=== PATIENT | female | born 1980 | race Hispanic/Latino ===

== ENCOUNTER 2018-01-04 23:10 | Emergency (ER) | payer MEDICAID ==
[2018-01-04 23:10] VITALS: BMI 25.7
[2018-01-04 23:19] VITALS: BP 102/64; PULSE 115
--- NOTE | 2018-01-04 23:27 | ED PDOC ---
Arrival/HPI - General Chief Complaint: Shortness Of Breath Time Seen by Provider: 01/04/18 23:17 Historian: Patient - History of Present Illness Narrative History of Present Illness (Text): 01/04/18 23:24 Funmi Bond is a 37 year old female, whose past medical history includes asthma , who presents to the Emergency department complaining of shortness of breath tonight with associated wheezing tonight. Patient states symptoms are consistent with previous episodes of asthma. Patient states she was getting ready to go out with friends when her symptoms began. fever, chills, chest pain , nausea, vomiting, diarrhea, urinary symptoms, back pain, neck pain, headache, dizziness, or any other complaints. Symptom Onset: Gradual Symptom Course: Unchanged Activities at Onset: Light Context: Home Past Medical History - Provider Review Nursing Documentation Reviewed: Yes - Past History Past History: Non-Contributing - Infectious Disease Hx of Infectious Diseases: None - Tetanus Immunization Tetanus Immunization: Unknown - Cardiac Hx Cardiac Arrhythmia: No Hx Congestive Heart Failure: No Hx Hypertension: No Hx Mitral Valve Prolapse: No Hx Pacemaker: No - Pulmonary Hx Asthma: Yes Hx Bronchitis: No (pt denies) Hx Chronic Obstructive Pulmonary Disease (COPD): Yes (pt denies) - Neurological Hx Transient Ischemic Attacks (TIA): No - HEENT Hx HEENT Disorder: No Hx Macular Degeneration: No - Renal Hx Renal Disorder: No - Endocrine/Metabolic Hx Endocrine Disorders: No Hx Systemic Lupus Erythematosus: No - Hematological/Oncological Hx Blood Disorders: No Hx Unexplained Bleeding: No - Integumentary Hx Dermatological Disorder: No Hx Squamous Cell Carcinoma: No - Musculoskeletal/Rheumatological Hx Falls: No - Gastrointestinal Hx Gall Bladder Disease: Yes - Genitourinary/Gynecological Hx Genitourinary Disorders: No Hx Urinary Tract Infection: No - Psychiatric Hx Anxiety: Yes Hx Depression: No Hx Substance Use: No - Surgical History Other/Comment: back surgery - Anesthesia Hx Anesthesia: Yes Hx Anesthesia Reactions: No Hx Malignant Hyperthermia: No - Suicidal Assessment Feels Threatened In Home Enviroment: No Family/Social History - Physician Review Nursing Documentation Reviewed: Yes Family/Social History: Unknown Family HX Smoking Status: Never Smoked Hx Alcohol Use: No Hx Substance Use: No Hx Substance Use Treatment: No Allergies/Home Meds Allergies/Adverse Reactions: Allergies cefepime Allergy (Verified 01/04/18 23:11) ITCHING ceftriaxone sodium [From Rocephin] Allergy (Verified 01/04/18 23:11) ITCHING ketorolac tromethamine [From Toradol] Allergy (Verified 01/04/18 23:11) ITCHING magnesium Allergy (Verified 01/04/18 23:11) URTICARIA metoclopramide HCl [From Reglan] Allergy (Verified 01/04/18 23:11) RASH cyclobenzaprine HCl [From Flexeril] Adverse Reaction (Verified 01/04/18 23:11) SHORTNESS OF BREATH gabapentin Adverse Reaction (Verified 01/04/18 23:11) SHORTNESS OF BREATH Iodinated Contrast- Oral and IV Dye Adverse Reaction (Verified 01/04/18 23:11) SHORTNESS OF BREATH morphine Adverse Reaction (Verified 01/04/18 23:11) ITCHING vancomycin Adverse Reaction (Verified 01/04/18 23:11) SHORTNESS OF BREATH racemic epinephrin Adverse Reaction (Intermediate, Uncoded 01/04/18 23:11) URTICARIA Home Medications: Home Meds Medication Instructions Recorded Confirmed Albuterol HFA [Ventolin HFA 90 2 puff PO PRN PRN 03/31/15 01/04/18 mcg/actuation (8 g)] Mometasone/Formoterol [Dulera 100 2 puff INH BID 05/28/15 01/04/18 Mcg/5 Mcg Inhaler] Albuterol/Ipratropium [Duoneb 3 3 ml INH PRN PRN 10/18/15 01/04/18 mg/0.5 mg (3 ml) UD] Review of Systems - Physician Review All systems were reviewed & negative as marked: Yes - Review of Systems Constitutional: Normal. absent: Fevers Eyes: Normal ENT: Normal Respiratory: SOB, Wheezing Cardiovascular: Normal. absent: Chest Pain Gastrointestinal: Normal. absent: Abdominal Pain, Diarrhea, Nausea, Vomiting Genitourinary Female: Normal. absent: Dysuria, Frequency, Hematuria, Urine Output Changes Musculoskeletal: Normal. absent: Back Pain, Neck Pain Skin: Normal. absent: Rash Neurological: Normal. absent: Headache, Dizziness Endocrine: Normal Hemo/Lymphatic: Normal Psychiatric: Normal Physical Exam Vital Signs Reviewed: Yes Vital Signs Pulse Resp BP Pulse Ox 01/05/18 00:58 18 99 01/05/18 00:29 22 93 L 01/04/18 23:18 115 H 24 102/64 98 Temperature: Afebrile Blood Pressure: Normal Pulse: Regular Respiratory Rate: Normal Appearance: Positive for: Well-Appearing, Non-Toxic, Comfortable Pain Distress: None Mental Status: Positive for: Alert and Oriented X 3 - Systems Exam Head: Present: Atraumatic, Normocephalic Pupils: Present: PERRL Extroacular Muscles: Present: EOMI Conjunctiva: Present: Normal Mouth: Present: Moist Mucous Membranes Neck: Present: Normal Range of Motion Respiratory/Chest: Present: Wheezes. No: Respiratory Distress, Accessory Muscle Use Cardiovascular: Present: Regular Rate and Rhythm, Normal S1, S2. No: Murmurs Abdomen: Present: Normal Bowel Sounds. No: Tenderness, Distention, Peritoneal Signs Back: Present: Normal Inspection Upper Extremity: Present: Normal Inspection. No: Cyanosis, Edema Lower Extremity: Present: Normal Inspection. No: Edema Neurological: Present: GCS=15, CN II-XII Intact, Speech Normal Skin: Present: Warm, Dry, Normal Color. No: Rashes Psychiatric: Present: Alert, Oriented x 3, Normal Insight, Normal Concentration Medical Decision Making ED Course and Treatment: 01/04/18 23:24 Impression: 37 year old female complaining of shortness of breath and wheezing tonight. Plan: -- Duoneb -- Prednisone -- Reassess and disposition Prior Visits: Notes and results from previous visits were reviewed. On 09/23/2017, pt was seen in the Emergency department for shortness of breath. Pt was admitted to the hospital for further evaluation. Progress Notes: 01/05/18 00:50 On reevaluation the patient feels better and is in no acute distress. I have discussed the results and plan with the patient, who expresses understanding. Patient given the opportunity to ask question, all questions were answered and there is agreement with the plan to discharge the patient home. Patient is stable for discharge. Patient was instructed to follow up with physician/clinic in 1-2 days or return if symptoms persist/worsen or new concerning symptoms arise. - Medication Orders Current Medication Orders: Discontinued Medications Albuterol/Ipratropium (Duoneb 3 Mg/0.5 Mg (3 Ml) Ud) 3 ml IH Q15M [facility] Last Admin: 01/04/18 23:59 Dose: 3 ml Prednisone (Prednisone Tab) 60 mg PO ONCE STA Stop: 01/04/18 23:24 Last Admin: 02/24/18 00:00 Dose: 60 mg - Scribe Statement The provider has reviewed the documentation as recorded by the Wesley Remy All medical record entries made by the Sandyibsue were at my direction and personally dictated by me. I have reviewed the chart and agree that the record accurately reflects my personal performance of the history, physical exam, medical decision making, and the department course for this patient. I have also personally directed, reviewed, and agree with the discharge instructions and disposition. Disposition/Present on Arrival - Present on Arrival Any Indicators Present on Arrival: No History of DVT/PE: Yes History of Uncontrolled Diabetes: No Urinary Catheter: No History of Decub. Ulcer: No History Surgical Site Infection Following: None - Disposition Have Diagnosis and Disposition been Completed?: Yes Diagnosis: Asthma Disposition: HOME/ ROUTINE Disposition Time: 00:50 Condition: IMPROVED Discharge Instructions (ExitCare): Asthma in Adults Referrals: Martín Guerrero Jr., MD [Primary Care Provider] - Follow up with primary Forms: [employer] (Armenian)
[2018-01-04] MEDS: Albuterol-Ipratrop 3 mg / 0.5 (3 ml) UD IH SCH ×3 (23:30→23:59)
[2018-01-05 00:59] VITALS: RESP 18; O2SAT 99
== END 2018-01-05 00:59 | disposition home or self-care (01) ==
LOC: ED 23:10
DX: J45.909 Unspecified asthma, uncomplicated (principal)

== ENCOUNTER 2018-02-14 15:58 | Emergency (ER) | payer MEDICAID ==
[2018-02-14 16:08] VITALS: BMI 29.1
[2018-02-14] MEDS: Levalbuterol 1.25 MG/3 ML Inhal Soln UD IH STA ×2 (16:10→16:40)
[2018-02-14] MEDS ORDERED: Levalbuterol 1.25 MG/3 ML Inhal Soln UD IH STA ×5 (16:10→23:06)
[2018-02-14 17:04] LABS: BASO # 0.05 K/mm3 (0.0-2.0); BASO % 0.3 % (0.0-3.0); EOS # 0.1 (0.0-0.7); EOS % 0.4 % (1.5-5.0); GRAN % 96.5 % (50.0-68.0); HEMOGLOBIN 14.4 g/dL (12.0-16.0); LYMPH # 0.4 (1.2-3.4); LYMPH % 2.1 % (22.0-35.0); MEAN CELL VOLUME 92.6 fl (80.0-105.0); MEAN CORPUSCULAR HEMOGLOBIN 32.1 pg (25.0-35.0); MEAN CORPUSCULAR HGB CONC 34.7 g/dl (31.0-37.0); MEAN PLATELET VOLUME 9.8 fl (7.0-11.0); MONO # 0.1 (0.1-0.6); MONO % 0.7 % (1.0-6.0); PLATELET COUNT 297 10^3/uL (120.0-450.0); RBC 4.48 10^6/uL (3.5-6.1); RED CELL DISTRIBUTION WIDTH 12.6 % (11.5-14.5); WHITE BLOOD COUNT 19.1 10^3/ul (4.5-11.0)
[2018-02-14 17:07] LABS: INR 1.12 (0.93-1.08); PARTIAL THROMBOPLASTIN TIME 27.5 Seconds (25.1-36.5); PROTHROMBIN TIME 12.8 SECONDS (9.4-12.5)
[2018-02-14 17:19] LABS: ALB/GLOB RATIO 1.3 (1.1-1.8); ALBUMIN 4.1 g/dL (3.0-4.8); ALT/SGPT 60 U/L (7-56); AST/SGOT 45 U/L (14-36); BLOOD UREA NITROGEN 7 mg/dL (7-21); CALCIUM 10.2 mg/dL (8.4-10.5); GFR AFRICAN-AMERICAN > 60; GFR NON-AFRICAN AMERICAN > 60
[2018-02-14 17:30] LABS: TROPONIN I < 0.01 ng/mL
[2018-02-14 17:54] LABS: BAND 4 % (0-2); LYMPHOCYTE 2 % (22.0-35.0); MONOCYTE 1 % (1.0-6.0); NEUTROPHIL 93 % (50.0-70.0)
--- NOTE | 2018-02-14 18:46 | ED PDOC ---
Arrival/HPI - General Chief Complaint: Shortness Of Breath Time Seen by Provider: 02/14/18 16:03 Historian: Patient - History of Present Illness Narrative History of Present Illness (Text): 02/14/18 18:44 38yo female Asthmatic , COPD, bib EMS with complaint of chest tightness, wheezing, shortness of breath and chest pain since earlier today. states she used her inhaler 15times without relieve. She states she took Prednisone 60mg s/ p coming to the Emergency department. She notes history of intubations 11times and multiple admissions. Denies fever, chills, nausea, vomiting, diaphoresis, calf pain, LE edema, any other complaint. Past Medical History - Provider Review Nursing Documentation Reviewed: Yes - Past History Past History: Non-Contributing - Infectious Disease Hx of Infectious Diseases: None - Tetanus Immunization Tetanus Immunization: Unknown - Cardiac Hx Cardiac Disorders: No - Pulmonary Hx Asthma: Yes Hx Chronic Obstructive Pulmonary Disease (COPD): Yes Other/Comment: INTUBATION - Neurological Hx Neurological Disorder: No - HEENT Hx HEENT Disorder: No - Renal Hx Renal Disorder: No - Endocrine/Metabolic Hx Endocrine Disorders: No Hx Systemic Lupus Erythematosus: No - Hematological/Oncological Hx Blood Disorders: No Hx Unexplained Bleeding: No - Integumentary Hx Dermatological Disorder: No - Musculoskeletal/Rheumatological Hx Musculoskeletal Disorders: No - Gastrointestinal Hx Gastrointestinal Disorders: Yes Hx Gall Bladder Disease: Yes - Genitourinary/Gynecological Hx Genitourinary Disorders: No Hx Urinary Tract Infection: No - Psychiatric Hx Psychophysiologic Disorder: Yes Hx Anxiety: Yes Hx Substance Use: No - Surgical History Other/Comment: back surgery - Anesthesia Hx Anesthesia: Yes Hx Anesthesia Reactions: No Hx Malignant Hyperthermia: No - Suicidal Assessment Feels Threatened In Home Enviroment: No Family/Social History - Physician Review Nursing Documentation Reviewed: Yes Family/Social History: Unknown Family HX Smoking Status: Never Smoked Hx Alcohol Use: No Hx Substance Use: No Hx Substance Use Treatment: No Allergies/Home Meds Allergies/Adverse Reactions: Allergies cefepime Allergy (Verified 02/14/18 16:08) ITCHING ceftriaxone sodium [From Rocephin] Allergy (Verified 02/14/18 16:08) ITCHING ketorolac tromethamine [From Toradol] Allergy (Verified 02/14/18 16:08) ITCHING magnesium Allergy (Verified 02/14/18 16:08) URTICARIA metoclopramide HCl [From Reglan] Allergy (Verified 02/14/18 16:08) RASH cyclobenzaprine HCl [From Flexeril] Adverse Reaction (Verified 02/14/18 16:08) SHORTNESS OF BREATH gabapentin Adverse Reaction (Verified 02/14/18 16:08) SHORTNESS OF BREATH Iodinated Contrast- Oral and IV Dye Adverse Reaction (Verified 02/14/18 16:08) SHORTNESS OF BREATH morphine Adverse Reaction (Verified 02/14/18 16:08) ITCHING vancomycin Adverse Reaction (Verified 02/14/18 16:08) SHORTNESS OF BREATH racemic epinephrin Adverse Reaction (Intermediate, Uncoded 02/14/18 16:08) URTICARIA Home Medications: Home Meds Medication Instructions Recorded Confirmed Albuterol HFA [Ventolin HFA 90 2 puff PO PRN PRN 03/31/15 02/14/18 mcg/actuation (8 g)] Mometasone/Formoterol [Dulera 100 2 puff INH BID 05/28/15 02/14/18 Mcg/5 Mcg Inhaler] Albuterol/Ipratropium [Duoneb 3 3 ml INH PRN PRN 10/18/15 02/14/18 mg/0.5 mg (3 ml) UD] Review of Systems - Physician Review All systems were reviewed & negative as marked: Yes - Review of Systems Constitutional: Normal Eyes: Normal ENT: Normal Respiratory: SOB, Wheezing. absent: Cough, Sputum Cardiovascular: Normal Gastrointestinal: Normal Genitourinary Female: Normal Musculoskeletal: Normal Skin: Normal Neurological: Normal Endocrine: Normal Hemo/Lymphatic: Normal Psychiatric: Normal Physical Exam Vital Signs Reviewed: Yes Vital Signs Pulse Resp BP Pulse Ox 02/14/18 21:50 113 H 18 113/83 92 L 02/14/18 20:42 121 H 18 98 02/14/18 19:40 123 H 18 98 02/14/18 19:10 129 H 18 98 02/14/18 16:47 28 H 96 02/14/18 16:11 115 H 18 117/73 98 Temperature: Afebrile Blood Pressure: Normal Pulse: Tachycardic Respiratory Rate: Normal Appearance: Positive for: Well-Appearing, Non-Toxic, Comfortable Pain Distress: Moderate Mental Status: Positive for: Alert and Oriented X 3 - Systems Exam Head: Present: Atraumatic, Normocephalic Pupils: Present: PERRL Extroacular Muscles: Present: EOMI Conjunctiva: Present: Normal Mouth: Present: Moist Mucous Membranes Neck: Present: Normal Range of Motion Respiratory/Chest: Present: Good Air Exchange, Wheezes (Difuse expiratory wheeze ), Retracting. No: Respiratory Distress, Accessory Muscle Use, Decreased Breath Sounds, Rales, Rhonchi, Tachypneic Cardiovascular: Present: Regular Rate and Rhythm, Normal S1, S2. No: Murmurs Abdomen: No: Tenderness, Distention, Peritoneal Signs Back: Present: Normal Inspection Upper Extremity: Present: Normal Inspection. No: Cyanosis, Edema Lower Extremity: Present: Normal Inspection. No: Edema Neurological: Present: GCS=15, CN II-XII Intact, Speech Normal Skin: Present: Warm, Dry, Normal Color. No: Rashes Psychiatric: Present: Alert, Oriented x 3, Normal Insight, Normal Concentration Medical Decision Making ED Course and Treatment: 02/15/18 00:11 PT was in moderate respiratory distress in Emergency department. She was treated with Xopenex and Solu medrol in Emergency department. per the RN she refused the whole 125mg of solu medrol and only took half of the medication. On r evaluation the wheeze improved slightly with the retractions, but she continued to wheeze. She notes that she is allergic to epinephrine and mag sulfate. Another multiple xopenex was ordered and pt was offered admission for status asthmaticus. she request that she ambulates around to see how she feel. On the trial her PO went to 92% on RA and she complained of shortness of breath. Treatment was continued and on re evaluation again for admission pt again asked to walk around in Emergency department to see how she feels before making her decision. On the 3rd time, patient request another treatment before she can decide if she is willing to stay. Another treatment was ordered and per the RN pt pulled out her port stating that she was leaving. She was told that she will leave Leaving Against Medical Advice (AMA): The patient is choosing to leave against medical advice. I have personally explained to the patient that choosing to do so may result in permanent bodily harm or . I have discussed at great length that without further evaluation and monitoring there may be unforeseen circumstances and/or deterioration causing permanent bodily harm or as a result of their choice. The patient is alert, oriented, and shows the mental capacity to make clear decisions regarding the patients health care at this time. The patient continues to wish to leave against medical advice. In light of the patients decision to leave against medical advice, follow-up has been arranged and the patient is aware of the importance to following up as instructed. The patient has been advised that they should return to the emergency room immediately if they change their mind at any time, or if their condition begins to change or worsen in any way. But she refused to sign the form and walked out from the Emergency department after 6hrs in Emergency department , declining admission for status Asthamticus. 02/15/18 00:19 02/15/18 00:21 While she was in Emergency department she complained of anxiety and was given Ativan . she complained of sensation in her throat and the RN noted that she was vomiting s/p and was given Zofran and Pepcid. She was talking in full sentence. Had no stridor. No tongue swelling. No hives was noted. 02/15/18 00:24 Leukocytosis was noted which is comparable to her previous labs. this could be secondary to the steroid she takes at home. - Lab Interpretations Lab Results: 02/14/18 16:39 02/14/18 16:39 Lab Results 02/14/18 18:44: Urine Opiates Screen Negative, Urine Methadone Screen Negative, Ur Barbiturates Screen Negative, Ur Phencyclidine Scrn Negative, Ur Amphetamines Screen Negative, U Benzodiazepines Scrn Positive, U Oth Cocaine Metabols Negative, U Cannabinoids Screen Negative 02/14/18 16:39: Sodium 140, Potassium 4.0, Chloride 106, Carbon Dioxide 24, Anion Gap 14, BUN 7, Creatinine 0.8, Est GFR ( Amer) > 60, Est GFR (Non- Af Amer) > 60, Random Glucose 141 H, Calcium 10.2, Total Bilirubin 0.3, AST 45 H D, ALT 60 H, Alkaline Phosphatase 78, Lactate Dehydrogenase 622, Total Creatine Kinase 223, Troponin I < 0.01, Total Protein 7.4, Albumin 4.1, Globulin 3.3, Albumin/Globulin Ratio 1.3 02/14/18 16:39: PT 12.8 H, INR 1.12 H, APTT 27.5 02/14/18 16:39: WBC 19.1 H D, RBC 4.48, Hgb 14.4, Hct 41.5, MCV 92.6, MCH 32.1, MCHC 34.7, RDW 12.6, Plt Count 297, MPV 9.8, Gran % 96.5 H, Lymph % (Auto) 2.1 L , [place] % (Auto) 0.7 L, Eos % (Auto) 0.4 L, Baso % (Auto) 0.3, Gran # 18.40 H, Lymph # (Auto) 0.4 L, [place] # (Auto) 0.1, Eos # (Auto) 0.1, Baso # (Auto) 0.05, Neutrophils % (Manual) 93 H, Band Neutrophils % 4 H, Lymphocytes % (Manual) 2 L , Monocytes % (Manual) 1 - RAD Interpretation Radiology Orders: 02/14/18 17:37 CHEST PORTABLE [RAD] Stat - Medication Orders Current Medication Orders: Discontinued Medications Famotidine (Pepcid) 20 mg IVP STAT STA Stop: 02/14/18 19:58 Last Admin: 02/14/18 20:04 Dose: 20 mg IVP Administration Document 02/14/18 20:04 IT (Rec: 02/14/18 20:04 IT [id number]) Charges for Administration # of IVP Administrations 1 Levalbuterol HCl (Xopenex) 1.25 mg IH STAT STA Stop: 02/14/18 16:10 Last Admin: 02/14/18 16:10 Dose: 1.25 mg Levalbuterol HCl (Xopenex) 1.25 mg IH STAT STA Stop: 02/14/18 16:11 Last Admin: 02/14/18 16:42 Dose: 1.25 mg Levalbuterol HCl (Xopenex) 1.25 mg IH STAT STA Stop: 02/14/18 16:11 Last Admin: 02/14/18 16:22 Dose: 1.25 mg Levalbuterol HCl (Xopenex) 1.25 mg IH STAT STA Stop: 02/14/18 18:55 Last Admin: 02/14/18 19:16 Dose: 1.25 mg Levalbuterol HCl (Xopenex) 1.25 mg IH STAT STA Stop: 02/14/18 20:25 Last Admin: 02/14/18 20:39 Dose: 1.25 mg Levalbuterol HCl (Xopenex) 1.25 mg IH STAT STA Stop: 02/14/18 23:07 Last Admin: 02/14/18 23:12 Dose: Lorazepam (Ativan) 2 mg IVP ONCE ONE PRN Reason: Protocol Stop: 02/14/18 19:05 Last Admin: 02/14/18 19:15 Dose: 2 mg IVP Administration Document 02/14/18 19:15 MS (Rec: 02/14/18 19:15 MS [id number]) Charges for Administration # of IVP Administrations 1 Methylprednisolone (Solu-Medrol) 125 mg IVP STAT STA Stop: 02/14/18 16:10 Last Admin: 02/14/18 16:40 Dose: 125 mg IVP Administration Document 02/14/18 16:40 MS (Rec: 02/14/18 16:40 MS [id number]) Charges for Administration # of IVP Administrations 1 Ondansetron HCl (Zofran Inj) 4 mg IVP STAT STA Stop: 02/14/18 19:58 Last Admin: 02/14/18 20:04 Dose: 4 mg IVP Administration Document 02/14/18 20:04 IT (Rec: 02/14/18 20:04 IT [id number]) Charges for Administration # of IVP Administrations 1 Disposition/Present on Arrival - Present on Arrival Any Indicators Present on Arrival: No History of DVT/PE: Yes History of Uncontrolled Diabetes: No Urinary Catheter: No History of Decub. Ulcer: No History Surgical Site Infection Following: None - Disposition Have Diagnosis and Disposition been Completed?: Yes Diagnosis: Status asthmaticus, Leukocytosis Disposition: AGAINST MEDICAL ADVICE Disposition Time: 23:15 Condition: FAIR Referrals: Martín Guerrero Jr., MD [Primary Care Provider] - Follow up with primary Forms: [employer] (Ukrainian)
[2018-02-14 19:10] LABS: OPIATES, UR NEGATIVE (NEGATIVE); PHENCYCLIDINE, UR NEGATIVE (NEGATIVE)
[2018-02-14 19:24] LABS: BARBITURATES, UR NEGATIVE (NEGATIVE); BENZODIAZEPINES, UR POSITIVE (NEGATIVE)
[2018-02-14 20:42] VITALS: RESP 18
[2018-02-14 21:51] VITALS: BP 113/83; PULSE 113; O2SAT 92
--- NOTE | 2018-02-15 09:31 | RAD ---
HISTORY: SOB COMPARISON: 09/23/2017 FINDINGS: LUNGS: No active pulmonary disease. PLEURA: No significant pleural effusion identified, no pneumothorax apparent. CARDIOVASCULAR: Normal. OSSEOUS STRUCTURES: No significant abnormalities. VISUALIZED UPPER ABDOMEN: Normal. OTHER FINDINGS: Left-sided Port-A-Cath IMPRESSION: No active disease.
== END 2018-02-14 23:24 | disposition left against medical advice (07) ==
LOC: ED 15:58
DX: J45.902 Unspecified asthma with status asthmaticus (principal); D72.829 Elevated white blood cell count, unspecified
CPT/HCPCS: 71045; 80053; 80324; 80345; 80346; 80349; 80353; 80358; 80361; 82550; 83615; 83992; 84484; 85025; 85610; 85730; 87040; 94640; 96374; 96375; 99285; J2060; J2405; J2930

== ENCOUNTER 2018-06-05 17:01 | Emergency (ER) | payer MEDICAID ==
[2018-06-05 17:01] VITALS: BMI 29.1
[2018-06-05] MEDS ORDERED: Sodium Chloride 0.9% 1,000 ML IV STA (17:24)
[2018-06-05 17:28] VITALS: TEMP 98.8
[2018-06-05] MEDS ORDERED: Albuterol-Ipratrop 3 mg / 0.5 (3 ml) UD IH STA (17:43)
--- NOTE | 2018-06-05 17:44 | ED PDOC ---
Arrival/HPI - General Chief Complaint: Female Genitourinary Time Seen by Provider: 06/05/18 17:02 Historian: Patient - History of Present Illness Narrative History of Present Illness (Text): 06/05/18 18:47 38yo female with pmhx of asthma who present with complaint of SOB, wheezing, abdominal pain and vaginal bleeding. Patient states she had Dilatation and curettage procedure s/p demise 3weeks ago. States procedure was done at [place] and left without waiting for instructions to know how long she suppose to bleed. states she had heavier bleeding s/p with clots but it has improved. States she is not taking any medication for the pain. Also reports chronic history of SOB and wheezing, but is worse today. Reports using her inhaler today. Denies fever, chills, urinary symptoms, nausea, vomiting, diarrhea, constipation, chest pain, SOB, diaphoresis, dizziness, any other complaint. Past Medical History - Provider Review Nursing Documentation Reviewed: Yes - Past History Past History: Non-Contributing - Infectious Disease Hx of Infectious Diseases: None - Tetanus Immunization Tetanus Immunization: Unknown - Cardiac Hx Cardiac Disorders: No - Pulmonary Hx Respiratory Disorders: Yes Hx Asthma: Yes Hx Chronic Obstructive Pulmonary Disease (COPD): Yes Other/Comment: INTUBATION - Neurological Hx Neurological Disorder: No - HEENT Hx HEENT Disorder: No - Renal Hx Renal Disorder: No - Endocrine/Metabolic Hx Endocrine Disorders: No Hx Systemic Lupus Erythematosus: No - Hematological/Oncological Hx Blood Disorders: No Hx Unexplained Bleeding: No - Integumentary Hx Dermatological Disorder: No - Musculoskeletal/Rheumatological Hx Musculoskeletal Disorders: No - Gastrointestinal Hx Gastrointestinal Disorders: Yes Hx Gall Bladder Disease: Yes - Genitourinary/Gynecological Hx Genitourinary Disorders: Yes Other/Comment: VAGINAL BLEEDING - Psychiatric Hx Psychophysiologic Disorder: Yes Hx Anxiety: Yes Hx Substance Use: No - Surgical History Other/Comment: D&C - Anesthesia Hx Anesthesia: Yes Hx Anesthesia Reactions: No Hx Malignant Hyperthermia: No - Suicidal Assessment Feels Threatened In Home Enviroment: No Family/Social History - Physician Review Nursing Documentation Reviewed: Yes Family/Social History: Unknown Family HX Smoking Status: Never Smoked Hx Alcohol Use: No Hx Substance Use: No Hx Substance Use Treatment: No Allergies/Home Meds Allergies/Adverse Reactions: Allergies cefepime Allergy (Verified 06/05/18 17:03) ITCHING ceftriaxone sodium [From Rocephin] Allergy (Verified 06/05/18 17:03) ITCHING ketorolac tromethamine [From Toradol] Allergy (Verified 06/05/18 17:03) ITCHING magnesium Allergy (Verified 06/05/18 17:03) URTICARIA metoclopramide HCl [From Reglan] Allergy (Verified 06/05/18 17:03) RASH cyclobenzaprine HCl [From Flexeril] Adverse Reaction (Verified 06/05/18 17:03) SHORTNESS OF BREATH gabapentin Adverse Reaction (Verified 06/05/18 17:03) SHORTNESS OF BREATH Iodinated Contrast- Oral and IV Dye Adverse Reaction (Verified 06/05/18 17:03) SHORTNESS OF BREATH vancomycin Adverse Reaction (Verified 06/05/18 17:03) SHORTNESS OF BREATH racemic epinephrin Adverse Reaction (Intermediate, Uncoded 06/05/18 17:03) URTICARIA Home Medications: Home Meds Medication Instructions Recorded Confirmed Albuterol HFA [Ventolin HFA 90 2 puff PO PRN PRN 03/31/15 06/05/18 mcg/actuation (8 g)] Mometasone/Formoterol [Dulera 100 2 puff INH BID 05/28/15 06/05/18 Mcg/5 Mcg Inhaler] Albuterol/Ipratropium [Duoneb 3 3 ml INH PRN PRN 10/18/15 06/05/18 mg/0.5 mg (3 ml) UD] Review of Systems - Physician Review All systems were reviewed & negative as marked: Yes - Review of Systems Constitutional: Normal Eyes: Normal ENT: Normal Respiratory: SOB, Wheezing. absent: Cough, Sputum Cardiovascular: Normal Gastrointestinal: Abdominal Pain. absent: Constipation, Diarrhea, Nausea, Vomiting, Hematochezia, Hematemesis Genitourinary Female: Vaginal Bleeding. absent: Dysuria, Frequency, Hematuria, Vaginal Discharge Musculoskeletal: Normal Skin: Normal Neurological: Normal Endocrine: Normal Hemo/Lymphatic: Normal Psychiatric: Normal Physical Exam Vital Signs Reviewed: Yes Vital Signs Temp Pulse Resp BP Pulse Ox 06/05/18 20:34 82 18 117/72 100 06/05/18 18:53 80 17 114/68 97 06/05/18 17:04 98.8 F 89 17 105/74 93 L Temperature: Afebrile Blood Pressure: Normal Pulse: Regular Respiratory Rate: Normal Appearance: Positive for: Well-Appearing, Non-Toxic, Comfortable Pain Distress: None Mental Status: Positive for: Alert and Oriented X 3 - Systems Exam Head: Present: Atraumatic, Normocephalic Pupils: Present: PERRL Extroacular Muscles: Present: EOMI Conjunctiva: Present: Normal Mouth: Present: Moist Mucous Membranes Neck: Present: Normal Range of Motion Respiratory/Chest: Present: Good Air Exchange, Wheezes (Diffuse mild expiratory wheeze). No: Respiratory Distress, Accessory Muscle Use, Decreased Breath Sounds, Rales, Retracting, Rhonchi, Tachypneic Cardiovascular: Present: Regular Rate and Rhythm, Normal S1, S2. No: Murmurs Abdomen: Present: Tenderness (Pelvic tenderness), Normal Bowel Sounds, Guarding (Voluntary), Other (Soft). No: Distention, Peritoneal Signs, Rebound, McBurney' s Point Tender, Rovsing's Sign Present Back: Present: Normal Inspection Upper Extremity: Present: Normal Inspection. No: Cyanosis, Edema Lower Extremity: Present: Normal Inspection. No: Edema Neurological: Present: GCS=15, CN II-XII Intact, Speech Normal Skin: Present: Warm, Dry, Normal Color. No: Rashes Psychiatric: Present: Alert, Oriented x 3, Normal Insight, Normal Concentration Medical Decision Making ED Course and Treatment: 06/06/18 01:06 PT presented for stated history. She exhibited drug seeking behaivor in ED asking for narcotics. she requested to go to US until morphine was given. Lab was reviewed and h/h was wnl. Beta was <3. On re evaluation her lung was CA b/l and she was not in any distress. Speaking in full sentence and ambulatory without any distress. Transvaginal US FINDINGS: Uterus/cervix: Nabothian cysts noted in the cervix Endometrium thickness measures 3.3 mm. No evidence of retained products. No myometrial mass. Right ovary: Both ovaries are normal in size and demonstrate vascular flow. Normal blood flow. Left ovary: Tubular fluid filled structure in the left adnexa, seen only on the transabdominal view, suspect bowel segment. Free fluid: No free fluid. IMPRESSION: No evidence of intrauterine retained products Result was DW the pt and she was referred to a HOSPITAL PHARMACY TECHNICIAN - Lab Interpretations Lab Results: 06/05/18 17:50 06/05/18 17:50 Lab Results 06/05/18 17:50: Beta HCG, Quant < 2.39 06/05/18 17:50: Sodium 141, Potassium 4.0, Chloride 105, Carbon Dioxide 25, Anion Gap 15, BUN 13, Creatinine 0.8, Est GFR ( Amer) > 60, Est GFR (Non- Af Amer) > 60, Random Glucose 87, Calcium 8.9, Magnesium 2.1, Total Bilirubin 0.2, AST 23, ALT 31, Alkaline Phosphatase 61, Total Protein 6.8, Albumin 3.9, Globulin 2.9, Albumin/Globulin Ratio 1.3, Lipase 47 06/05/18 17:50: PT 11.7, INR 1.03, APTT 20.8 L 06/05/18 17:50: WBC 8.0 D, RBC 4.53, Hgb 14.1, Hct 41.5, MCV 91.6, MCH 31.1, MCHC 34.0, RDW 12.6, Plt Count 272, MPV 10.0, Gran % 58.2, Lymph % (Auto) 24.9, [place] % (Auto) 7.6 H, Eos % (Auto) 8.3 H, Baso % (Auto) 1.0, Gran # 4.65, Lymph # (Auto) 2.0, [place] # (Auto) 0.6, Eos # (Auto) 0.7, Baso # (Auto) 0.08 - RAD Interpretation Radiology Orders: 06/05/18 17:27 TRANSVAGINAL [US] Stat - Medication Orders Current Medication Orders: Discontinued Medications Albuterol/Ipratropium (Duoneb 3 Mg/0.5 Mg (3 Ml) Ud) 3 ml IH Q15M STA Stop: 06/05/18 17:44 Last Admin: 06/05/18 18:18 Dose: 3 ml Famotidine (Pepcid) 20 mg IVP STAT STA Stop: 06/05/18 17:25 Last Admin: 06/05/18 18:18 Dose: 20 mg IVP Administration Document 06/05/18 18:18 SF (Rec: 06/05/18 18:18 [id number]) Charges for Administration # of IVP Administrations 1 Sodium Chloride (Sodium Chloride 0.9%) 1,000 mls @ 1,000 mls/hr IV .Q1H STA Stop: 06/05/18 18:23 Last Admin: 06/05/18 18:15 Dose: 1,000 mls/hr eMAR Start Stop Document 06/05/18 18:15 SF (Rec: 06/05/18 18:33 SF [id number]) Intravenous Solution Start Date 06/05/18 Start Time 18:15 End Date 06/05/18 End time 19:15 Total Infusion Time 60 Methylprednisolone (Solu-Medrol) 125 mg IVP STAT STA Stop: 06/05/18 17:45 Last Admin: 06/05/18 18:18 Dose: 125 mg IVP Administration Document 06/05/18 18:18 SF (Rec: 06/05/18 18:18 SF [id number]) Charges for Administration # of IVP Administrations 1 Morphine Sulfate (Morphine) 4 mg IVP STAT STA Stop: 06/05/18 18:36 Last Admin: 06/05/18 18:57 Dose: 4 mg MAR Pain Assessment Document 06/05/18 18:57 SF (Rec: 06/05/18 18:57 SF [id number]) Pain Reassessment Is this a pain reassessment? Yes Sleep Is patient sleeping during reassessment? No Presence of Pain Presence of Pain Yes IVP Administration Document 06/05/18 18:57 SF (Rec: 06/05/18 18:57 SF [id number]) Charges for Administration # of IVP Administrations 1 Disposition/Present on Arrival - Present on Arrival Any Indicators Present on Arrival: No History of DVT/PE: Yes History of Uncontrolled Diabetes: No Urinary Catheter: No History of Decub. Ulcer: No History Surgical Site Infection Following: None - Disposition Have Diagnosis and Disposition been Completed?: Yes Diagnosis: Pelvic pain in female, Drug-seeking behavior, Acute asthma exacerbation Disposition: HOME/ ROUTINE Disposition Time: 20:25 Patient Plan: Discharge Condition: STABLE Discharge Instructions (ExitCare): Asthma in Adults, Acute Pelvic Pain (DC) Additional Instructions: Follow up with your PMD/HOSPITAL PHARMACY TECHNICIAN Return to ED for any new or worsening symptoms Referrals: Molly Salas MD [Staff Provider] - Follow up with primary Forms: Jildy (Romansh)
[2018-06-05] MEDS ORDERED: Oxycodone/Acetaminophen 5/325 mg Tab PO STA (18:30)
[2018-06-05] MEDS ORDERED: Morphine 4 mg/ml ISec IVP STA (18:35)
[2018-06-05 18:37] LABS: ALB/GLOB RATIO 1.3 (1.1-1.8); ALBUMIN 3.9 g/dL (3.0-4.8); ALT/SGPT 31 U/L (7-56); AST/SGOT 23 U/L (14-36); BLOOD UREA NITROGEN 13 mg/dL (7-21); CALCIUM 8.9 mg/dL (8.4-10.5); GFR AFRICAN-AMERICAN > 60; GFR NON-AFRICAN AMERICAN > 60; LIPASE 47 U/L (23-300)
[2018-06-05 18:41] LABS: INR 1.03 (0.93-1.08); PARTIAL THROMBOPLASTIN TIME 20.8 Seconds (25.1-36.5); PROTHROMBIN TIME 11.7 SECONDS (9.4-12.5)
[2018-06-05 18:46] LABS: BASO # 0.08 K/mm3 (0.0-2.0); EOS # 0.7 (0.0-0.7); EOS % 8.3 % (1.5-5.0); GRAN # 4.65 (1.4-6.5); GRAN % 58.2 % (50.0-68.0); HEMOGLOBIN 14.1 g/dL (12.0-16.0); LYMPH % 24.9 % (22.0-35.0); MEAN CELL VOLUME 91.6 fl (80.0-105.0); MEAN CORPUSCULAR HEMOGLOBIN 31.1 pg (25.0-35.0); MONO # 0.6 (0.1-0.6); MONO % 7.6 % (1.0-6.0); RBC 4.53 10^6/uL (3.5-6.1); RED CELL DISTRIBUTION WIDTH 12.6 % (11.5-14.5)
[2018-06-05 20:36] VITALS: BP 117/72; PULSE 82; RESP 18; O2SAT 100
--- NOTE | 2018-06-06 12:56 | US ---
Date of service: 06/05/2018 HISTORY: abdominal pain/bleeding s/p D C COMPARISON: None available. TECHNIQUE: Transabdominal and transvaginal FINDINGS: UTERUS: Measures 9.0 x 4.7 x 4.9 cm. Normal in size and appearance. No fibroid or other mass lesion seen. ENDOMETRIUM: Measures 3 mm in diameter. Unremarkable. CERVIX: No cervical abnormality identified. RIGHT OVARY: Measures 3.4 x 2.3 x 2.0 cm. No solid mass. Normal flow. LEFT OVARY: Measures 3.7 x 1.4 x 1.8 cm. No solid mass. Normal flow. There is an ovoid complex fluid collection in the left adnexal region with low-level internal echoes and a mildly lobulated wall. The appearance and most likely represents a segment of bowel. . FREE FLUID: No significant free fluid noted. OTHER FINDINGS: None. IMPRESSION: No evidence retained products conception. Tubular fluid collection in left adnexal region most likely a segment of bowel wall. Otherwise unremarkable. The preliminary findings for this examination were reported by [facility] at 8:04 p.m. on 06/05/2018. There is concurrence of this report with the preliminary findings.
== END 2018-06-05 20:34 | disposition home or self-care (01) ==
LOC: ED 17:01
DX: R10.2 Pelvic and perineal pain (principal); Z76.5 Malingerer [conscious simulation]; J45.901 Unspecified asthma with (acute) exacerbation
CPT/HCPCS: 76830; 80053; 83690; 83735; 84702; 85025; 85610; 85730; 96361; 96374; 96375; 99284; J2270; J2930; J7030

== ENCOUNTER 2018-08-20 07:59 | Emergency (ER) | payer MEDICAID, MEDICARE, OTHER ==
[2018-08-20 07:59] VITALS: BMI 26.4
== END 2018-08-20 08:10 | disposition left against medical advice (07) ==
LOC: ED 07:59
DX: Z02.89 Encounter for other administrative examinations (principal); R06.00 Dyspnea, unspecified

== ENCOUNTER 2019-01-24 18:55 | Emergency (ER) | payer MEDICAID, MEDICARE, OTHER ==
[2019-01-24 18:58] VITALS: BMI 24.0
[2019-01-24] MEDS ORDERED: Sodium Chloride 0.9% 1,000 ML IV STA (19:33)
[2019-01-24 20:01] LABS: BASO # 0.03 K/mm3 (0.0-2.0); BASO % 0.3 % (0.0-3.0); EOS % 0.2 % (1.5-5.0); HEMOGLOBIN 13.9 g/dL (12.0-16.0); LYMPH # 1.4 (1.2-3.4); LYMPH % 13.8 % (22.0-35.0); MEAN CELL VOLUME 93.1 fl (80.0-105.0); MEAN CORPUSCULAR HEMOGLOBIN 32.1 pg (25.0-35.0); MEAN CORPUSCULAR HGB CONC 34.5 g/dl (31.0-37.0); MEAN PLATELET VOLUME 10.2 fl (7.0-11.0); MONO # 0.8 (0.1-0.6); MONO % 7.3 % (1.0-6.0); RBC 4.33 10^6/uL (3.5-6.1); RED CELL DISTRIBUTION WIDTH 12.3 % (11.5-14.5); WHITE BLOOD COUNT 10.3 10^3/uL (4.5-11.0)
[2019-01-24 20:15] LABS: BLOOD UREA NITROGEN 12 mg/dL (7-21); GFR NON-AFRICAN AMERICAN > 60
[2019-01-24 20:26] LABS: TROPONIN I < 0.01 ng/mL
[2019-01-24 20:53] LABS: CK-MB 4.4 ng/mL (0.0-3.6)
[2019-01-24 20:54] VITALS: TEMP 98.2
--- NOTE | 2019-01-24 22:16 | ED PDOC ---
Arrival/HPI - General Chief Complaint: Chest Pain Time Seen by Provider: 01/24/19 19:17 Historian: Patient - History of Present Illness Narrative History of Present Illness (Text): 01/24/19 22:16 39 year old female, with past medical history of anxiety, asthma, COPD, gall bladder disease, and pulmonary embolism, presents to emergency department complaining of chest pain, shortness of breath, nausea, vomiting, diarrhea, and generalized weakness for the past two days. Patient reports symptoms improved after taking oxycodone, which she uses for chronic back pain from a pervious surgery. Patient notes that when she stopped taking the medication, her symptoms started again. Patient also notes that her shortness of breath feels different currently and she has not been experiencing wheezing which she usually does. Patient also reports feeling anxious currently but does not take medication for anxiety. Patient denies any fevers, chills, headache, dizziness, cough, abdominal pain, neck pain, or any other complaints. Time/Duration: Other (2 days) Symptom Onset: Gradual Symptom Course: Unchanged Activities at Onset: Light Context: Home Past Medical History - Provider Review Nursing Documentation Reviewed: Yes - Past History Past History: Non-Contributing - Infectious Disease Hx of Infectious Diseases: None - Tetanus Immunization Tetanus Immunization: Unknown - Cardiac Hx Atrial Fibrillation: No Hx Cardiac Arrhythmia: No Hx Congestive Heart Failure: No Hx Hypertension: No Hx Mitral Valve Prolapse: No Hx Pacemaker: No - Pulmonary Hx Asthma: Yes Hx Bronchitis: (pt denies) Hx Chronic Obstructive Pulmonary Disease (COPD): Yes Hx Pulmonary Embolism: Yes - Neurological Hx Transient Ischemic Attacks (TIA): No - HEENT Hx HEENT Disorder: No - Renal Hx Renal Disorder: No - Endocrine/Metabolic Hx Endocrine Disorders: No Hx Systemic Lupus Erythematosus: No - Hematological/Oncological Hx Blood Disorders: Yes Hx Cancer: Yes (Left breast CA) - Integumentary Hx Dermatological Disorder: No - Musculoskeletal/Rheumatological Hx Fractures: Yes - Gastrointestinal Hx Gall Bladder Disease: Yes - Genitourinary/Gynecological Hx Genitourinary Disorders: Yes Other/Comment: DYSFUNCTIONAL UTERINE BLEEDING, - Psychiatric Hx Anxiety: Yes Hx Depression: No Hx Substance Use: No - Surgical History Other/Comment: L chest port - Anesthesia Hx Anesthesia: Yes Hx Anesthesia Reactions: No Hx Malignant Hyperthermia: No - Suicidal Assessment Feels Threatened In Home Enviroment: No Family/Social History - Physician Review Nursing Documentation Reviewed: Yes Family/Social History: Unknown Family HX Smoking Status: Former Smoker Hx Alcohol Use: No Hx Substance Use: No Hx Substance Use Treatment: No Allergies/Home Meds Allergies/Adverse Reactions: Allergies cefepime Allergy (Verified 12/17/18 03:16) ITCHING ceftriaxone sodium [From Rocephin] Allergy (Verified 12/17/18 03:16) ITCHING ketorolac tromethamine [From Toradol] Allergy (Verified 12/17/18 03:16) ITCHING magnesium Allergy (Verified 12/17/18 03:16) URTICARIA metoclopramide HCl [From Reglan] Allergy (Verified 12/17/18 03:16) RASH cyclobenzaprine HCl [From Flexeril] Adverse Reaction (Verified 12/17/18 03:16) SHORTNESS OF BREATH gabapentin Adverse Reaction (Verified 12/17/18 03:16) SHORTNESS OF BREATH Iodinated Contrast- Oral and IV Dye Adverse Reaction (Verified 12/17/18 03:16) SHORTNESS OF BREATH vancomycin Adverse Reaction (Verified 12/17/18 03:16) SHORTNESS OF BREATH racemic epinephrin Adverse Reaction (Intermediate, Uncoded 12/17/18 03:16) URTICARIA Home Medications: Home Meds Medication Instructions Recorded Confirmed Albuterol/Ipratropium [Duoneb 3 3 ml INH PRN PRN 10/18/15 12/17/18 mg/0.5 mg (3 ml) UD] Budesonide/Formoterol Fumarate 1 aer IH BID 12/17/18 12/17/18 [Symbicort] Review of Systems - Physician Review All systems were reviewed & negative as marked: Yes - Review of Systems Constitutional: absent: Fevers Respiratory: SOB. absent: Cough, Wheezing Cardiovascular: Chest Pain Gastrointestinal: Diarrhea, Nausea, Vomiting. absent: Abdominal Pain Genitourinary Female: absent: Frequency, Hematuria, Urine Output Changes Musculoskeletal: Back Pain (chronic ), Myalgias (generalized ) Skin: absent: Rash Neurological: absent: Headache, Dizziness Psychiatric: Anxiety Physical Exam Vital Signs Reviewed: Yes Vital Signs Temp Pulse Resp BP Pulse Ox 01/24/19 20:54 98.2 F 75 18 135/74 97 Temperature: Afebrile Blood Pressure: Normal Pulse: Regular Respiratory Rate: Normal Appearance: Positive for: Well-Appearing, Non-Toxic, Comfortable Pain Distress: None Mental Status: Positive for: Alert and Oriented X 3 - Systems Exam Head: Present: Atraumatic, Normocephalic Pupils: Present: PERRL Extroacular Muscles: Present: EOMI Conjunctiva: Present: Normal Mouth: Present: Moist Mucous Membranes Neck: Present: Normal Range of Motion Respiratory/Chest: Present: Clear to Auscultation, Good Air Exchange, Other (hyperventilating, port to left chest ). No: Respiratory Distress, Accessory Muscle Use, Wheezes Cardiovascular: Present: Regular Rate and Rhythm, Normal S1, S2. No: Murmurs Abdomen: Present: Other (soft ). No: Tenderness, Distention, Peritoneal Signs Back: Present: Normal Inspection Upper Extremity: Present: Normal Inspection. No: Cyanosis, Edema Lower Extremity: Present: Normal Inspection. No: Edema Neurological: Present: GCS=15, CN II-XII Intact, Speech Normal Skin: Present: Warm, Dry, Normal Color. No: Rashes Psychiatric: Present: Alert, Oriented x 3, Normal Insight, Normal Concentration, Anxious Medical Decision Making ED Course and Treatment: 01/24/19 22:26 Impression: 39 year old female presents to emergency department complaining of chest pain, shortness of breath, nausea, vomiting, diarrhea, and generalized weakness for the past two days. Plan: -- EKG -- Labs -- Chest X-ray -- Ativan -- Potassium chloride -- Reassess and disposition Prior Visits: Notes and results from previous visits were reviewed. Progress Notes: L chest port accessed by RN. IV hydration initiated. 1mg ativan ivp given for anxiety and hyperventilating. 01/25/19 00:22 EKG: Ordered, reviewed, and independently interpreted the EKG. Rate : 82 BPM Rhythm : NSR Interpretation : Normal axis, normal intervals, no ST elevation CXR: no acute disease as read by me. All results reviewed and discussed with patient. Hypokalemia noted, 40meq KCl IVPB ordered and given. On re-eval she appears much more calm, no longer hyperventilating. Vital signs have been within normal limits throughout ED course. Stable for discharge home at this time. Advised outpatient followup with PMD. Return to the ED for any new or worsening symptoms. Lung exam still unremarkable at discharge. No vomiting or diarrhea throughout ED course. - Lab Interpretations Lab Results: Troponin I < 0.01 ng/mL 01/24/19 19:53 - RAD Interpretation Radiology Orders: 01/24/19 19:32 CHEST PORTABLE [RAD] Stat - Medication Orders Current Medication Orders: Potassium Chloride (Potassium Chloride 20 Meq/100 Ml) 20 meq in 100 mls @ 50 mls/hr IVPB Q2H SHON Stop: 01/25/19 00:29 Last Admin: 01/24/19 21:13 Dose: 50 mls/hr eMAR Start Stop Document 01/24/19 21:13 EB (Rec: 01/24/19 21:13 [id number] Intravenous Solution Start Date 01/24/19 Start Time 21:13 Discontinued Medications Sodium Chloride (Sodium Chloride 0.9%) 1,000 mls @ 999 mls/hr IV .Q1H1M STA Stop: 01/24/19 20:33 Last Admin: 01/24/19 19:48 Dose: 999 mls/hr eMAR Start Stop Document 01/24/19 19:48 EB (Rec: 01/24/19 19:48 [id number] Intravenous Solution Start Date 01/24/19 Start Time 19:48 Lorazepam (Ativan) 1 mg IVP ONCE ONE; Protocol Stop: 01/24/19 19:33 Last Admin: 01/24/19 19:48 Dose: 1 mg IVP Administration Document 01/24/19 19:48 EB (Rec: 01/24/19 19:48 [id number] Charges for Administration # of IVP Administrations 1 - Scribe Statement The provider has reviewed the documentation as recorded by the Scribe Rosibel Flores All medical record entries made by the Scribe were at my direction and personally dictated by me. I have reviewed the chart and agree that the record accurately reflects my personal performance of the history, physical exam, medical decision making, and the department course for this patient. I have also personally directed, reviewed, and agree with the discharge instructions and disposition. Disposition/Present on Arrival - Present on Arrival Any Indicators Present on Arrival: No History of DVT/PE: No History of Uncontrolled Diabetes: No Urinary Catheter: No History of Decub. Ulcer: No History Surgical Site Infection Following: None - Disposition Have Diagnosis and Disposition been Completed?: Yes Diagnosis: Dyspnea, Anxiety, Hypokalemia, Nausea vomiting and diarrhea Disposition: HOME/ ROUTINE Disposition Time: 23:30 Patient Plan: Discharge Condition: STABLE Discharge Instructions (ExitCare): Nausea and Vomiting, Adult (DC), Shortness of Breath (Dyspnea) Additional Instructions: GUANAKO CARLSON, thank you for letting us take care of you today. Your provider was Karen Orlando MD and you were treated for CHEST PAIN, VOMITING, OVERALL WEAKNESS. The emergency medical care you received today was directed at your acute symptoms. If you were prescribed any medication, please fill it and take as directed. It may take several days for your symptoms to resolve. Return to the Emergency Department if your symptoms worsen, do not improve, or if you have any other problems. Please contact your doctor or call one of the physicians/clinics you have been referred to that are listed on the Patient Visit Information form that is included in your discharge packet. Bring any paperwork you were given at discharge with you along with any medications you are taking to your follow up visit. Our treatment cannot replace ongoing medical care by a primary care prov ider outside of the emergency department. Thank you for allowing the [facility] team to be part of your care today. If you had an X-Ray or CT scan: A Radiologist will review the ED reading if any change in treatment is needed we will contact you. If you had a blood, urine, or wound culture: It will take several days for the results, if any change in treatment is needed we will contact you. If you had an STI test: It will take 48 hours for the results. Please call after 1 week if you have not heard back. Referrals: Martín Guerrero Jr., MD [Primary Care Provider] - Follow up with primary Forms: Silecs (Chilean)
[2019-01-24 22:36] VITALS: BP 103/67; PULSE 71; RESP 17; O2SAT 99
--- NOTE | 2019-01-25 09:02 | CARD ---
APPROVED REPORT Date of service: 01/24/2019 EKG Measurement Heart [id number] <Conclusion> Normal sinus rhythm Possible Left atrial enlargement Borderline ECG
--- NOTE | 2019-01-25 11:56 | RAD ---
Date of service: 01/24/2019 HISTORY: Dyspnea. COMPARISON: Five hundred eighteen. FINDINGS: LUNGS: No active pulmonary disease. PLEURA: No significant pleural effusion identified, no pneumothorax apparent. CARDIOVASCULAR: No atherosclerotic calcification present No radiographic findings to suggest acute or significant cardiovascular disease. Venous access catheter in stable, satisfactory position. OSSEOUS STRUCTURES: No significant abnormalities. VISUALIZED UPPER ABDOMEN: Normal. OTHER FINDINGS: None. IMPRESSION: No active disease. No significant interval change compared to the prior examination(s).
== END 2019-01-24 23:30 | disposition home or self-care (01) ==
LOC: ED 18:55
DX: E87.6 Hypokalemia (principal); R06.00 Dyspnea, unspecified; F41.9 Anxiety disorder, unspecified; R11.2 Nausea with vomiting, unspecified; R19.7 Diarrhea, unspecified; J44.9 Chronic obstructive pulmonary disease, unspecified; Z87.891 Personal history of nicotine dependence
CPT/HCPCS: 71045; 80048; 81025; 82550; 82553; 83615; 83735; 84484; 85025; 93005; 96374; 96376; 99283; J2060; J3480; J7030

== ENCOUNTER 2019-03-23 15:36 | Emergency (ER) | payer MEDICAID ==
[2019-03-23 15:36] VITALS: BMI 24.0
[2019-03-23 15:41] VITALS: TEMP 98.3
--- NOTE | 2019-03-23 15:49 | ED PDOC ---
Arrival/HPI - General Chief Complaint: Shortness Of Breath Time Seen by Provider: 03/23/19 15:43 Historian: Patient - History of Present Illness Narrative History of Present Illness (Text): 03/23/19 15:46 39 y/o female, pmh including asthma/copd with multiple intubation in the past, drug allergy to flexeril/toradol/rocephine/dyes, c/o coughing and wheezing x 3 days. Pt. stated that she was seen by her pmd about 3 days ago for asthma/copd, on the medrodose calin/albuterol and symbicort, stated that she still is wheezing, no night sweat, no rash, no numbness or tingling, no diarrhea, no other medical or psychological complaints. Past Medical History - Provider Review Nursing Documentation Reviewed: Yes - Past History Past History: Non-Contributing - Infectious Disease Hx of Infectious Diseases: None - Tetanus Immunization Tetanus Immunization: Unknown - Cardiac Hx Atrial Fibrillation: No Hx Cardiac Arrhythmia: No Hx Congestive Heart Failure: No Hx Hypertension: No Hx Mitral Valve Prolapse: No Hx Pacemaker: No - Pulmonary Hx Asthma: Yes Hx Bronchitis: (pt denies) Hx Chronic Obstructive Pulmonary Disease (COPD): Yes Hx Pulmonary Embolism: Yes - Neurological Hx Transient Ischemic Attacks (TIA): No - HEENT Hx HEENT Disorder: No - Renal Hx Renal Disorder: No - Endocrine/Metabolic Hx Endocrine Disorders: No Hx Systemic Lupus Erythematosus: No - Hematological/Oncological Hx Blood Disorders: Yes Hx Cancer: Yes (Left breast CA) - Integumentary Hx Dermatological Disorder: No - Musculoskeletal/Rheumatological Hx Fractures: Yes - Gastrointestinal Hx Gall Bladder Disease: Yes - Genitourinary/Gynecological Hx Genitourinary Disorders: Yes Other/Comment: DYSFUNCTIONAL UTERINE BLEEDING, - Psychiatric Hx Anxiety: Yes Hx Depression: No Hx Substance Use: No - Surgical History Other/Comment: L chest port - Anesthesia Hx Anesthesia: Yes Hx Anesthesia Reactions: No Hx Malignant Hyperthermia: No - Suicidal Assessment Feels Threatened In Home Enviroment: No Family/Social History - Physician Review Nursing Documentation Reviewed: Yes Family/Social History: Unknown Family HX Smoking Status: Former Smoker Hx Alcohol Use: No Hx Substance Use: No Hx Substance Use Treatment: No Allergies/Home Meds Allergies/Adverse Reactions: Allergies cefepime Allergy (Verified 03/23/19 15:41) ITCHING ceftriaxone sodium [From Rocephin] Allergy (Verified 03/23/19 15:41) ITCHING ketorolac tromethamine [From Toradol] Allergy (Verified 03/23/19 15:41) ITCHING magnesium Allergy (Verified 03/23/19 15:41) URTICARIA metoclopramide HCl [From Reglan] Allergy (Verified 03/23/19 15:41) RASH cyclobenzaprine HCl [From Flexeril] Adverse Reaction (Verified 03/23/19 15:41) SHORTNESS OF BREATH gabapentin Adverse Reaction (Verified 03/23/19 15:41) SHORTNESS OF BREATH Iodinated Contrast- Oral and IV Dye Adverse Reaction (Verified 03/23/19 15:41) SHORTNESS OF BREATH vancomycin Adverse Reaction (Verified 03/23/19 15:41) SHORTNESS OF BREATH racemic epinephrin Adverse Reaction (Intermediate, Uncoded 03/23/19 15:41) URTICARIA Home Medications: Home Meds Medication Instructions Recorded Confirmed Albuterol/Ipratropium [Duoneb 3 3 ml INH PRN PRN 10/18/15 03/23/19 mg/0.5 mg (3 ml) UD] Budesonide/Formoterol Fumarate 1 aer IH BID 12/17/18 03/23/19 [Symbicort] Review of Systems - Review of Systems Constitutional: absent: Fatigue, Fevers ENT: absent: Hearing Changes Respiratory: SOB, Cough, Sputum, Wheezing Cardiovascular: absent: Chest Pain Gastrointestinal: absent: Abdominal Pain, Diarrhea, Nausea, Vomiting Musculoskeletal: absent: Arthralgias Skin: absent: Rash, Pruritis Neurological: absent: Headache, Dizziness Psychiatric: absent: Anxiety, Depression, Suicidal Ideation Physical Exam Vital Signs Reviewed: Yes Vital Signs Temp Pulse Resp BP Pulse Ox 03/23/19 15:40 98.3 F 99 H 20 139/103 H 95 Temperature: Afebrile Blood Pressure: Hypertensive Pulse: Regular Respiratory Rate: Tachypneic Appearance: Positive for: Well-Appearing, Non-Toxic, Comfortable Pain Distress: None Mental Status: Positive for: Alert and Oriented X 3 - Systems Exam Head: Present: Atraumatic, Normocephalic Pupils: Present: PERRL Extroacular Muscles: Present: EOMI Conjunctiva: Present: Normal Mouth: Present: Moist Mucous Membranes Neck: Present: Normal Range of Motion Respiratory/Chest: Present: Wheezes, Decreased Breath Sounds. No: Respiratory Distress, Accessory Muscle Use, Rales, Retracting, Rhonchi, Tachypneic, Tender to Palpation Cardiovascular: Present: Regular Rate and Rhythm, Normal S1, S2, Other (no pedal edema). No: Murmurs Abdomen: No: Tenderness, Distention, Peritoneal Signs, Rebound, Guarding Back: Present: Normal Inspection. No: CVA Tenderness, Midline Tenderness, Paraspinal Tenderness, Pain with Leg Raise, Decubitus Ulcer Upper Extremity: Present: Normal Inspection. No: Cyanosis, Edema Lower Extremity: Present: Normal Inspection. No: Edema Neurological: Present: GCS=15, CN II-XII Intact, Speech Normal, Motor Func Grossly Intact, Normal Cerebellar Funct, Gait Normal, Memory Normal Skin: Present: Warm, Dry, Normal Color. No: Rashes Psychiatric: Present: Alert, Oriented x 3, Normal Insight, Normal Concentration Medical Decision Making ED Course and Treatment: 03/23/19 15:54 -Labs -EKG -Chest xray -IV solumedrol/duoneb -Observe and reassess 03/23/19 17:35 -Pt. declined duoneb, request xopenex which I ordered. -Pt. refused solumedrol full dose as she took prednisone 60mg po, I ordered the solumedrol 60 for her IV. 03/23/19 18:17 -Beta HCG is negative -EKG NSR @ 78 BPM, no St elevation or depression, no T wave inversion -Chest xray No active pulmonary disease. -Labs are non-significant -BNP is normal -Mg is normal -Trop after 24 hours is negative -Pending further evaluation -I was noted by the FIRST AID INSTRUCTOR that the patient pulled out the IV and eloped from the ER without further evaluation/treatment or have the change to re-evaluated by me. she would be place as elopement. - RAD Interpretation Radiology Orders: Date of service: 03/23/2019 HISTORY: cough and wheezing COMPARISON: 01/24/2019 FINDINGS: Left-sided MediPort terminates in the SVC. LUNGS: The lungs are well inflated and clear. PLEURA: No pleural effusions or pneumothorax. CARDIOVASCULAR: The heart is normal in size. No aortic atherosclerotic calcifications present. OSSEOUS STRUCTURES: Within normal limits for the patient's age. VISUALIZED UPPER ABDOMEN: Normal. OTHER FINDINGS: None. IMPRESSION: No active pulmonary disease. Commercial Loan Administrator: Radiologist - PA / CINEMA OR THEATRE MANAGER / Resident Statement MD/DO has reviewed & agrees with the documentation as recorded. Disposition/Present on Arrival - Present on Arrival Any Indicators Present on Arrival: No History of DVT/PE: No History of Uncontrolled Diabetes: No Urinary Catheter: No History of Decub. Ulcer: No History Surgical Site Infection Following: None - Disposition Have Diagnosis and Disposition been Completed?: Yes Diagnosis: Asthma exacerbation, Non-compliance Disposition: ELOPEMENT - ER ONLY Disposition Time: 18:18 Condition: STABLE Referrals: Martín Guerrero Jr., MD [Primary Care Provider] - Follow up with primary Forms: [employer] (Salvadorean)
[2019-03-23 15:50] VITALS: RESP 18
[2019-03-23] MEDS ORDERED: Sodium Chloride 0.9% 1,000 ML IV STA (15:50)
[2019-03-23 16:17] LABS: BASO # 0.07 K/mm3 (0.0-2.0); BASO % 0.8 % (0.0-3.0); EOS # 0.4 (0.0-0.7); LYMPH # 2.7 (1.2-3.4); LYMPH % 30.5 % (22.0-35.0); MEAN CELL VOLUME 94.9 fl (80.0-105.0); MEAN CORPUSCULAR HEMOGLOBIN 31.3 pg (25.0-35.0); MEAN CORPUSCULAR HGB CONC 32.9 g/dl (31.0-37.0); MEAN PLATELET VOLUME 9.7 fl (7.0-11.0); MONO # 0.8 (0.1-0.6); MONO % 9.4 % (1.0-6.0); RBC 4.48 10^6/uL (3.5-6.1); RED CELL DISTRIBUTION WIDTH 12.7 % (11.5-14.5); WHITE BLOOD COUNT 8.7 10^3/uL (4.5-11.0)
[2019-03-23] MEDS: Albuterol-Ipratrop 3 mg / 0.5 (3 ml) UD IH SCH ×2 (16:17→16:25)
[2019-03-23 16:25] LABS: ALB/GLOB RATIO 1.4 (1.1-1.8); ALT/SGPT 14 U/L (7-56); AST/SGOT 21 U/L (14-36); BLOOD UREA NITROGEN 14 mg/dL (7-21); CALCIUM 8.6 mg/dL (8.4-10.5); GFR NON-AFRICAN AMERICAN > 60
[2019-03-23 16:36] LABS: B-TYPE NATRIURETIC PEPTIDE 78.4 pg/mL (0-450); TROPONIN I < 0.01 ng/mL
[2019-03-23] MEDS ORDERED: Levalbuterol 1.25 MG/3 ML Inhal Soln UD IH STA (17:40)
[2019-03-23 17:53] VITALS: BP 112/78; PULSE 87; O2SAT 96
--- NOTE | 2019-03-23 17:56 | RAD ---
Date of service: 03/23/2019 HISTORY: cough and wheezing COMPARISON: 01/24/2019 FINDINGS: Left-sided MediPort terminates in the SVC. LUNGS: The lungs are well inflated and clear. PLEURA: No pleural effusions or pneumothorax. CARDIOVASCULAR: The heart is normal in size. No aortic atherosclerotic calcifications present. OSSEOUS STRUCTURES: Within normal limits for the patient's age. VISUALIZED UPPER ABDOMEN: Normal. OTHER FINDINGS: None. IMPRESSION: No active pulmonary disease.
--- NOTE | 2019-03-24 09:16 | CARD ---
APPROVED REPORT Date of service: 03/23/2019 EKG Measurement Heart [id number] <Conclusion> Normal sinus rhythm Normal ECG
== END 2019-03-23 18:17 | disposition left against medical advice (07) ==
LOC: ED 15:36
DX: J45.901 Unspecified asthma with (acute) exacerbation (principal); Z91.19 Patient's noncompliance with other medical treatment and regimen; Z86.711 Personal history of pulmonary embolism; Z87.891 Personal history of nicotine dependence
CPT/HCPCS: 71045; 80053; 83735; 83880; 84484; 84702; 85025; 93005; 96374; 99285; J7030